=== PATIENT | female | born 1965 | race Caucasian/White ===

== ENCOUNTER 2020-05-20 11:20 | Outpatient (CLI) | payer OTHER, SELFPAY ==
--- NOTE | 2020-05-20 11:28 | XRR_ITS ---
PROCEDURE INFORMATION: Exam: XR Right Hip with Pelvis when Performed Exam date and time: 05/20/2020 11:53 AM Age: 55 years old Clinical indication: Hip pain; Right hip; Additional info: Pain in right hip TECHNIQUE: Imaging protocol: XR Right hip with pelvis when performed. Views: 1 view. COMPARISON: CR Hip 2-3v RIGHT wwo Pelv* [id number] 06/13/2018 10:54 AM FINDINGS: Bones/joints: Metallic screws are seen in the projection of the lower lumbar spine. No acute fracture. Soft tissues: Unremarkable. XR/XR hip RT 2-3V wo/w pel* [id number] IMPRESSION: No acute findings.
== END 2020-05-20 11:21 | disposition home or self-care (01) ==
PROVIDERS: PCP Family Medicine; Visit Provider Family Medicine
DX: M25.551 Pain in right hip (principal)
CPT/HCPCS: 73502

== ENCOUNTER → 2021-03-24 10:50 | Outpatient (BNVA) | payer OTHER, SELFPAY | PROVIDERS: PCP Family Medicine; Visit Provider Nurse Practitioner Family | DX: Z20.828 Contact with and (suspected) exposure to other viral communicable diseases (principal); Z20.822 Contact with and (suspected) exposure to COVID-19 | CPT/HCPCS: 87426 ==

== ENCOUNTER 2024-04-04 13:24 | Outpatient (CLI) | payer OTHER, SELFPAY ==
--- NOTE | 2024-04-04 13:31 | MR_ITS ---
WS: [id number] MRI CERVICAL SPINE NONCONTRAST HISTORY: NECK PAIN COMPARISON: None available. Technique: Multiplanar, multisequence noncontrast imaging of the cervical spine. Mild curvature of the cervical spine with straightening. Retrolisthesis of C5 by 3 mm. No acute fract ure or marrow edema. Disc spaces are desiccated, most significant at C4-5, C5-6 and C6-7. Signal within the cervical cord is normal. Visualized posterior fossa is unremarkable. Craniocervical junction, C1 and C2 relationship, odontoid process and soft tissues are normal. C2-C3: Small central disc protrusion and osteophytic ridging. Very mild RIGHT foraminal stenosis. C3-C4: Small central disc protrusion and osteophytic ridging and mild facet arthritis. Mild bilateral foraminal stenosis. C4-C5: Diffuse osteophytic ridging with annular disc bulging and mild facet arthritis. Mild central a nd bilateral foraminal stenosis. C5-C6: Marked osteophytic ridging with annular disc bulging. Larger central to RIGHT paracentral disc osteophyte complex. Complete effacement of ventral CSF. There is contact and deformity of the ventra l cord. High-grade central and bilateral foraminal stenosis. C6-C7: Diffuse osteophytic ridging with annular disc bulging. Bilateral facet arthritis. Moderate kerry tral with moderate to severe bilateral foraminal stenosis, RIGHT greater than LEFT due to disc osteop hyte disease. C7-T1: No stenosis. Paraspinal soft tissue are normal. MR/MR cervical spin wo con* [id number] IMPRESSION: 1. Moderate degenerative disc disease and osteophytosis at C4-5, C5-6 and C6-7 . 2. C4-5: Mild central with bilateral foraminal stenosis. 3. C5-6: Severe central and bilateral foraminal stenosis due to disc and osteo phyte disease. 4. C6-7: Moderate central with moderate to severe bilateral foraminal stenosis , RIGHT greater than LEFT. 5. Small central disc protrusions and osteophytic ridging at C2-3 and C3-4. 6. Mild RIGHT foraminal stenosis at C2-3 and mild bilateral at C3-4.
== END 2024-04-04 13:25 | disposition home or self-care (01) ==
LOC: RAD 13:27
PROVIDERS: PCP Family Medicine; Visit Provider Family Medicine
DX: M48.02 Spinal stenosis, cervical region (principal); R20.0 Anesthesia of skin; M50.321 Other cervical disc degeneration at C4-C5 level; M50.322 Other cervical disc degeneration at C5-C6 level; M50.323 Other cervical disc degeneration at C6-C7 level; M25.78 Osteophyte, vertebrae; M50.21 Other cervical disc displacement, high cervical region
CPT/HCPCS: 72141

== ENCOUNTER → 2024-06-14 13:51 | Outpatient (BNVA) | payer OTHER, SELFPAY | PROVIDERS: PCP Family Medicine; Visit Provider Nurse Practitioner | DX: M17.12 Unilateral primary osteoarthritis, left knee (principal) | CPT/HCPCS: 73560; 73565 ==

== ENCOUNTER 2024-09-27 12:28 | Outpatient (CLI) | payer OTHER, SELFPAY ==
--- NOTE | 2024-09-27 13:00 | MRR_ITS ---
PROCEDURE INFORMATION: Exam: MR Left Lower Extremity Joint Without Contrast, Knee Exam date and time: 09/27/2024 12:54 PM Age: 59 years old Clinical indication: Pain; Knee; Left; Additional info: Acute pain and instability. , TECHNIQUE: Imaging protocol: Magnetic resonance imaging of the left lower extremity joint without contrast. Exam focused on the knee. COMPARISON: CR XR knees AP WB w LT lmt ORTH 06/14/2024 1:55 PM FINDINGS: Bones/joints: Intermediate-high grade medial femorotibial chondromalacia, particularly of the weight-bearing surface of the medial femoral condyle. Intermediate-grade patellofemoral chondromalacia with marginal osteophytes. There is fissuring of the patellar median ridge articular cartilage. Low-grade lateral femorotibial No evidence of fracture or aggressive osseous lesion. Small joint effusion. Medial meniscus: Complex tear of the posterior horn in the region of the posterior root ligament with associated protrusion/extrusion of the body (image 14 of series 6). Lateral meniscus: Intact. Anterior cruciate ligament: Intact. Posterior cruciate ligament: Intact. Medial capsule and supporting structures: Intact. Lateral capsule and supporting structures: Intact. Extensor mechanism of knee: Quadriceps and patellar tendons are intact. Retinacula are intact. Soft tissues: Robles's cyst measuring 4 cm. No fluid collection or hematoma. MR/MR knee LT wo con* [id number] IMPRESSION: 1. Complex tear posterior horn medial meniscus in the region of the posterior root ligament. 2. Intermediate-high grade medial femorotibial chondromalacia.
== END 2024-09-27 12:29 | disposition home or self-care (01) ==
LOC: RAD 12:29
PROVIDERS: PCP Family Medicine; Visit Provider Nurse Practitioner
DX: S83.232A Complex tear of medial meniscus, current injury, left knee, initial encounter (principal); M94.262 Chondromalacia, left knee; X58.XXXA Exposure to other specified factors, initial encounter
CPT/HCPCS: 73721

== ENCOUNTER 2024-11-13 15:24 | Outpatient (CLI) | payer OTHER, SELFPAY | END 2024-11-13 15:25 | disposition home or self-care (01) | LOC: SLEEP 15:25 | PROVIDERS: PCP Family Medicine; Referring Provider Nurse Practitioner Family; Visit Provider Internal Medicine Pulmonary Disease | DX: G47.33 Obstructive sleep apnea (adult) (pediatric) (principal); G47.36 Sleep related hypoventilation in conditions classified elsewhere | CPT/HCPCS: G0399 ==